=== PATIENT | female | born 1975 | race Two or more races ===

== ENCOUNTER 2017-03-18 13:26 | Emergency (ER) | payer BC ==
[2017-03-18 13:37] VITALS: TEMP 98.4
[2017-03-18] MEDS ORDERED: IPRATROPIUM/ALBUTEROL 3 ML DEYVIAL IH ONE (13:41)
--- NOTE | 2017-03-18 13:43 | EDPHY ---
H & P Time Seen by Provider: 03/18/17 13:41 HPI/ROS: Chief complaint. Shortness of breath, chest tightness HPI. 41-year-old female presents emergency department with shortness of breath. She has had a chest cold for 2 weeks with cough. No fever however. Some tightness in her chest with breathing. Cough is nonproductive. No unusual leg pain or swelling. She has had similar symptoms before with diagnosis of bronchitis and treated with albuterol inhaler and Zithromax. She feels that her albuterol inhaler is not helping adequately in that it helps for about an hour and then she becomes short of breath again. Some upper head congestion. ROS Constitutional. no fever/chills, no weakness Eyes. no problems with vision ENT. no sore throat, no nasal drainage Cardiovascular. Chest tightness Respiratory. Wheezing and short of breath with cough Abdominal. no abdominal pain, no nausea/vomiting, no diarrhea . no problems urinating MS. no calf pain/swelling, no neck/back pain, no joint pain Skin. no rash Lymph. no swollen glands Neuro. no headache, no dizziness, no difficulty walking or with speech Past Medical/Surgical History: Past medical history seen for back fusion, appendectomy, cholecystectomy, hypertension Social History: Single, nonsmoker, no alcohol Smoking Status: Never smoked Physical Exam: General Appearance: Alert well-developed female mild distress vital signs are stable Eyes: Pupils equal and round no pallor or injection. ENT, Mouth: Mucous membranes are moist. Respiratory: No retractions. End expiratory rhonchi and some wheezing. Cardiovascular: Regular rate and rhythm. Gastrointestinal: Abdomen is soft and nontender, no masses, bowel sounds normal. Neurological: Awake and alert, sensory and motor exams grossly normal. Skin: Warm and dry, no rashes. Musculoskeletal: Neck is supple nontender. Extremities symmetrical, full range of motion. Psychiatric: Patient is oriented X 3, there is no agitation. Constitutional: Initial Vital Signs Temperature (C) 36.9 C 03/18/17 13:33 Heart Rate 88 03/18/17 13:33 Respiratory Rate 18 03/18/17 13:33 Blood Pressure 143/84 H 03/18/17 13:33 O2 Sat (%) 97 03/18/17 13:33 O2 Delivery Mode Room Air Allergies/Adverse Reactions: latex Allergy (Verified 03/18/17 13:37) Home Medications: Medication Instructions Recorded Albuterol Hfa Anes Only [Proair 2 puffs IH Q4 PRN #1 mdi 08/15/15 Hfa Icu (*)] Hydrochlorothiazide 08/15/15 Losartan Potassium 08/15/15 Albuterol Hfa Anes Only [Proair 2 puffs IH QID #1 mdi 03/18/17 Hfa Icu (*)] Albuterol Sulfate 2.5 mg IH Q4-6PRN PRN #12 ml 03/18/17 Flovent Hfa 03/18/17 predniSONE 40 mg PO DAILY #8 tablet 03/18/17 Medical Decision Making - Diagnostics Imaging Results: Imaging Impressions Chest X-Ray 03/18/17 13:51 Impression: Opacity of the left lower lung, overlying soft tissue versus parenchymal abnormality, with additional evaluation recommended as clinically directed. One-view chest x-ray suspicious for left lower lobe pneumonia Procedures: DuoNeb updraft Prednisone by mouth ED Course/Re-evaluation: Re-evaluation and patient is moving more air. She is conversational and speaking in full sentences Patient and I discussed imaging study results, treatment plan including criteria for return importance of follow-up and further evaluation. She expresses understanding and agreement Differential Diagnosis: I considered pneumonia, bronchitis, asthma exacerbation - Data Points Medications Given: Discontinued Medications Acetaminophen (Tylenol) 1,000 mg PO EDNOW ONE Stop: 03/18/17 14:29 Last Admin: 03/18/17 14:31 Dose: 1,000 mg Albuterol/Ipratropium (Duoneb) 3 ml IH EDNOW ONE Stop: 03/18/17 13:42 Last Admin: 03/18/17 13:50 Dose: 3 ml Prednisone (Prednisone) 60 mg PO EDNOW ONE Stop: 03/18/17 13:52 Last Admin: 03/18/17 14:23 Dose: 60 mg Departure - Departure Disposition: Home, Routine, Self-Care Clinical Impression: Pneumonia Qualifiers: Pneumonia type: due to unspecified organism Laterality: left Lung location: lower lobe of lung Qualified Code(s): J18.1 - Lobar pneumonia, unspecified organism Condition: Good Instructions: Community Acquired Pneumonia (ED) Additional Instructions: Albuterol inhaler every 4 hours to help with breathing. Zithromax is antibiotic. Return for worsening symptoms. Recheck in 2 days if not improving Referrals: Becki Bhagat PA [Primary Care Provider] - 2-3 days, if not improved Stand Alone Forms: Work Excuse Prescriptions: Albuterol Hfa Anes Only [Proair Hfa Icu (*)] 2 puffs IH QID #1 mdi Albuterol Sulfate 2.5 mg IH Q4-6PRN PRN #12 ml PRN Reason: Short Of Breath/Dyspnea predniSONE 40 mg PO DAILY #8 tablet
[2017-03-18] MEDS ORDERED: predniSONE 20 MG TAB PO ONE (13:51)
[2017-03-18] MEDS ORDERED: ACETAMINOPHEN 500 MG TAB PO ONE (14:28)
[2017-03-18 14:30] VITALS: RESP 16
[2017-03-18] MEDS ORDERED: ACETAMINOPHEN 500 MG TAB ONE (14:30)
[2017-03-18 16:17] VITALS: BP 107/54; PULSE 78; O2SAT 96
== END 2017-03-18 14:59 | disposition home or self-care (01) ==
LOC: CED 13:26
DX: J18.9 Pneumonia, unspecified organism (principal); I10 Essential (primary) hypertension
CPT/HCPCS: 71010-PO

== ENCOUNTER → 2018-05-02 | Outpatient (CLI) | payer OTHER, BC | LOC: FIMAGING 15:26 | PROVIDERS: ATTEND Physician Assistant | DX: M79.671 Pain in right foot (principal); M79.89 Other specified soft tissue disorders ==